=== PATIENT | male | born 1995 ===

== ENCOUNTER 2023-11-16 11:03 | Outpatient (CLI) | payer OTHER | END 2023-11-16 11:14 | disposition home or self-care (01) | LOC: RAD 11:03 | PROVIDERS: ATTEND Obstetrics & Gynecology Obstetrics | DX: M25.531 Pain in right wrist (principal) ==

== ENCOUNTER → 2023-11-27 16:58 | Outpatient (CLI) | payer OTHER | END | disposition home or self-care (01) | LOC: RAD 16:58 | PROVIDERS: ATTEND Obstetrics & Gynecology Obstetrics | DX: M99.01 Segmental and somatic dysfunction of cervical region (principal); M99.02 Segmental and somatic dysfunction of thoracic region; M99.03 Segmental and somatic dysfunction of lumbar region; M99.04 Segmental and somatic dysfunction of sacral region; M99.05 Segmental and somatic dysfunction of pelvic region; M25.531 Pain in right wrist ==